=== PATIENT | female | born 1935 | race Caucasian/White ===

== ENCOUNTER 2018-07-06 16:47 | Emergency (ER) | payer MEDICARE ==
[~2018-07-06] VITALS: Ht 157.5 cm; Wt 69.1 kg
[~2018-07-06 16:47] MED LIST: METHOTREXA2.5 MG/TAB PO; NAPROSYN PO; PREMARIN0.3 MG PO; TYLENOL 500MG500 MG PO; ZOFRAN4 MG PO
[2018-07-06 16:59] VITALS: TEMP 98.4
[2018-07-06 18:54] LABS: BASO % 0.4 % (0.0-2.0); EOS # 0.1 (0.0-0.7); EOS % 1.1 % (0-4.0); GRAN # 3.1 (1.4-6.5); GRAN % 69.9 % (42.2-75.2); HEMATOCRIT 39.8 % (37.0-47.0); HEMOGLOBIN 13.1 g/dl (12.5-16.0); LYMPH # 0.8 (1.2-3.4); LYMPH % 17.9 % (20.0-51.0); MEAN CELL VOLUME 102 fl (80.0-100.0); MEAN CORPUSCULAR HEMOGLOBIN 34 pg (27.0-31.0); MEAN CORPUSCULAR HGB CONC 33 g/dl (33.0-37.0); MEAN PLATELET VOLUME 9.7 fl (7.4-10.4); MONO # 0.5 (0.1-0.6); MONO % 10.5 % (1.7-9.3); PLATELET COUNT 203 K/mm3 (130-400); RED BLOOD COUNT 3.89 M/mm3 (4.10-5.30); REDCELL DISTRIBUTION WIDTH-CV 13.7 % (11.5-14.5)
[2018-07-06 19:04] LABS: ALBUMIN 4.5 gm/dL (3.5-5.0); BILIRUBIN,TOTAL 0.7 mg/dL (0.0-1.0); CALCIUM 9.5 mg/dL (8.4-10.2); CREATININE, serum 0.65 mg/dL (0.52-1.25); POTASSIUM 4.3 mmol/L (3.4-5.0); TOTAL PROTEIN 7.7 gm/dL (6.4-8.2)
[2018-07-06] MEDS ORDERED: LEVAQUIN 750MG750 M1 PO (19:52)
[2018-07-06 20:28] VITALS: BP 195/93; PULSE 70
== END 2018-07-06 20:28 | disposition home or self-care (01) ==
LOC: COL.ER 16:47
PROVIDERS: Physician Assistant
DX: S00.83XA Contusion of other part of head, initial encounter (principal); J18.1 Lobar pneumonia, unspecified organism; Z90.710 Acquired absence of both cervix and uterus; W18.39XA Other fall on same level, initial encounter; W22.8XXA Striking against or struck by other objects, initial encounter; Y92.009 Unspecified place in unspecified non-institutional (private) residence as the place of occurrence of the external cause

== ENCOUNTER 2020-09-11 12:45 | Emergency (ER) | payer MEDICARE ==
[~2020-09-11] VITALS: Ht 157.5 cm; Wt 52.7 kg
[~2020-09-11 12:45] MED LIST changes: +LEVAQUIN 750MG750 M1 PO
[2020-09-11 12:47] VITALS: TEMP 97.9
[2020-09-11] MEDS ORDERED: ELIQUIS 5MG PO (13:09)
[2020-09-11] MEDS ORDERED: LOTRIMIN1% TP (13:10)
[2020-09-11] MEDS ORDERED: LOMOTIL 0.025 M1 TAB PO (13:10)
[2020-09-11] MEDS ORDERED: B-121000 MCG PO (13:10)
[2020-09-11] MEDS ORDERED: FOLIC ACID 11 MG/TA1 PO (13:11)
[2020-09-11] MEDS ORDERED: ALDACTONE 25MG25 M1 PO (13:11)
[2020-09-11 13:32] LABS: BASO % 0.9 % (0.0-2.0); EOS # 0.1 (0.0-0.7); EOS % 2.1 % (0-4.0); GRAN # 3.3 (1.4-6.5); HEMOGLOBIN 10.9 g/dl (12.5-16.0); LYMPH # 0.6 (1.2-3.4); LYMPH % 13.1 % (20.0-51.0); MEAN CELL VOLUME 98 fl (80.0-100.0); MEAN CORPUSCULAR HEMOGLOBIN 31 pg (27.0-31.0); MEAN CORPUSCULAR HGB CONC 32 g/dl (33.0-37.0); MEAN PLATELET VOLUME 9.9 fl (7.4-10.4); MONO # 0.3 (0.1-0.6); PLATELET COUNT 185 K/mm3 (130-400); RED BLOOD COUNT 3.49 M/mm3 (4.10-5.30); REDCELL DISTRIBUTION WIDTH-CV 14.9 % (11.5-14.5)
[2020-09-11 13:44] LABS: ALBUMIN 3.3 gm/dL (3.5-5.0); BILIRUBIN,TOTAL 2.3 mg/dL (0.0-1.0); CALCIUM 8.6 mg/dL (8.4-10.2); CREATININE, serum 0.65 (0.52-1.25); POTASSIUM 3.2 mmol/L (3.4-5.0); TOTAL PROTEIN 6.8 gm/dL (6.4-8.2)
[2020-09-11 13:48] LABS: HEMATOCRIT 34.1 % (37.0-47.0)
[2020-09-11 14:06] LABS: INR 1.7 (0.8-3.0); PROTHROMBIN TIME 18.9 SECONDS (9.7-12.8)
[2020-09-11 15:14] LABS: HEMOGLOBIN 11.2 g/dl (12.5-16.0)
[2020-09-11 15:17] LABS: HEMATOCRIT 35.2 % (37.0-47.0)
[2020-09-11 15:47] VITALS: BP 179/100; PULSE 122
== END 2020-09-11 16:06 | disposition short-term general hospital (02) ==
LOC: COL.ER 12:45
PROVIDERS: Nurse Practitioner
DX: S06.5X0A Traumatic subdural hemorrhage without loss of consciousness, initial encounter (principal); S01.01XA Laceration without foreign body of scalp, initial encounter; I10 Essential (primary) hypertension; I48.91 Unspecified atrial fibrillation; Z79.01 Long term (current) use of anticoagulants; W01.198A Fall on same level from slipping, tripping and stumbling with subsequent striking against other object, initial encounter; Y92.481 Parking lot as the place of occurrence of the external cause
CPT/HCPCS: J7050

== ENCOUNTER 2020-11-13 13:46 | Inpatient (IN) | payer MEDICARE ==
[~2020-11-13] VITALS: Ht 157.5 cm; Wt 75.0 kg
[~2020-11-13 13:46] MED LIST changes: +ALDACTONE 25MG25 M1 PO; +B-121000 MCG PO; +ELIQUIS 5MG PO; +FOLIC ACID 11 MG/TA1 PO; +LOMOTIL 0.025 M1 TAB PO; +LOTRIMIN1% TP
[2020-11-14 09:55] LABS: BASO % 0.5 % (0.0-2.0); EOS # 0.1 (0.0-0.7); EOS % 1.4 % (0-4.0); GRAN # 3.5 (1.4-6.5); GRAN % 78.9 % (42.2-75.2); HEMATOCRIT 39.8 % (37.0-47.0); HEMOGLOBIN 12.2 g/dl (12.5-16.0); LYMPH # 0.5 (1.2-3.4); MEAN CELL VOLUME 98 fl (80.0-100.0); MEAN CORPUSCULAR HEMOGLOBIN 30 pg (27.0-31.0); MEAN CORPUSCULAR HGB CONC 31 g/dl (33.0-37.0); MEAN PLATELET VOLUME 9.5 fl (7.4-10.4); MONO # 0.4 (0.1-0.6); PLATELET COUNT 264 K/mm3 (130-400); RED BLOOD COUNT 4.07 M/mm3 (4.10-5.30); REDCELL DISTRIBUTION WIDTH-CV 14.8 % (11.5-14.5)
[2020-11-14 10:02] LABS: INR 2.2 (0.8-3.0)
[2020-11-14 10:04] LABS: ALBUMIN 3.6 gm/dL (3.5-5.0); BILIRUBIN,TOTAL 1.7 mg/dL (0.0-1.0); CREATININE, serum 0.76 (0.52-1.25); MAGNESIUM 1.6 mg/dL (1.6-2.3); TOTAL PROTEIN 7.2 gm/dL (6.4-8.2)
[2020-11-14 10:09] LABS: POTASSIUM 2.8 mmol/L (3.4-5.0)
[2020-11-14 10:37] VITALS: BP 165/97; PULSE 87; TEMP 98.2
[2020-11-14 12:14] VITALS: BP 109/91; PULSE 112; TEMP 97.9
[2020-11-14] MEDS ORDERED: TENORMIN 5050 MG/TAB PO ×2 (13:07→13:50)
[2020-11-14] MEDS ORDERED: BUMEX 1MG TA1 MG/TA1 PO (13:51)
[2020-11-14] MEDS ORDERED: METHOTREXA2.5 MG/TAB PO (13:54)
[2020-11-14] MEDS ORDERED: PREDNISONE1 MG PO (13:57)
[2020-11-14] MEDS ORDERED: NATURE'S BLEND100 M2 PO (14:03)
[2020-11-14 17:10] VITALS: BP 149/80; PULSE 87; TEMP 97.6
--- NOTE | 2020-11-14 20:45 | NUR ---
Initial shift assessment done-- sitting up in chair,, has her home clothes on, alert/oriented, Tele on-afib/rate 70-80,, INT to left AC,, nurse aide here and helped pt to bathroom, put on fall risk gown/arm band /slippers- pt brushed teeth- back to bed- bed alarm on- understands cannot get up without assistance. Has bruises to left side of face/abrasion from fall at home 1 week ago. Pt denies any chest pain/SOB or palpitations- here for Sotalol initiation.
[2020-11-14 21:06] VITALS: BP 163/96; PULSE 87; TEMP 97.4
[2020-11-15 00:27] VITALS: BP 141/80; PULSE 89; TEMP 97.4
[2020-11-15 04:16] VITALS: BP 136/90; PULSE 85; TEMP 97.6
--- NOTE | 2020-11-15 05:31 | NUR ---
Up to bathroom with assisst every 2 hours throughout the night- VSS, Tele on- afib rate 80,s.
[2020-11-15 06:49] LABS: BASO % 0.4 % (0.0-2.0); EOS # 0.1 (0.0-0.7); GRAN # 3.5 (1.4-6.5); GRAN % 75.3 % (42.2-75.2); HEMATOCRIT 37.2 % (37.0-47.0); HEMOGLOBIN 11.4 g/dl (12.5-16.0); LYMPH # 0.6 (1.2-3.4); MEAN CELL VOLUME 97 fl (80.0-100.0); MEAN CORPUSCULAR HEMOGLOBIN 30 pg (27.0-31.0); MEAN CORPUSCULAR HGB CONC 31 g/dl (33.0-37.0); MEAN PLATELET VOLUME 9.3 fl (7.4-10.4); MONO # 0.4 (0.1-0.6); MONO % 8.9 % (1.7-9.3); PLATELET COUNT 247 K/mm3 (130-400); RED BLOOD COUNT 3.85 M/mm3 (4.10-5.30); REDCELL DISTRIBUTION WIDTH-CV 14.6 % (11.5-14.5)
[2020-11-15 07:05] LABS: CALCIUM 8.7 mg/dL (8.4-10.2); CREATININE, serum 0.73 (0.52-1.25); POTASSIUM 3.7 mmol/L (3.4-5.0)
[2020-11-15 08:35] VITALS: BP 142/76; PULSE 91; TEMP 97.5
--- NOTE | 2020-11-15 11:02 | NUR ---
Assessment completed, alert/oriented, vital signs stable, heart irregular/A.fib on tele with rate controlled, QTC withing normal range and Sotalol given, lungs CTA/ diminished, edema to BLE, IV duretics ordered and patient refused/ I have notified cardiolgoy of this and they plan to come discuss plan of care with her, patient denies other needs at [facility], will continue to monitor
[2020-11-15 11:36] VITALS: BP 138/95; PULSE 82; TEMP 98.2
--- NOTE | 2020-11-15 13:46 | NUR ---
SOPHIE met with the patient to discuss discharge plan. The patient lives in [place] with her daughter, Rosette Langley (ph#[phone]). She reports independence with ADLs and has a cane and walker. The patient's PCP is Dr. Donaldo Leyva and she receives her medications from [facility]. She reports some difficulties affording her meds. She states that she is on Eliquis and it is very expensive. SOPHIE informed her of [facility] and how sometimes the cardiologists are able to provide free samples. The patient verbalized understanding. The patient does not have DPOA-HC in EMR, but she states that she does have one completed and that it designates her daughter, Rosette. The patient plans to return home with her daughter upon discharge. No additional needs at this time. *Discharge plan: home with daughter*
[2020-11-15 15:25] VITALS: BP 151/93; PULSE 79; TEMP 97.9
[2020-11-15 19:53] VITALS: BP 103/76; PULSE 91; TEMP 98
[2020-11-16] VITALS (9 sets, daily range): BP systolic 106–156; BP diastolic 50–91; PULSE 71–97; TEMP 97.6–97.9
[2020-11-16 06:39] LABS: BASO % 0.4 % (0.0-2.0); EOS # 0.1 (0.0-0.7); EOS % 2.2 % (0-4.0); HEMATOCRIT 37.4 % (37.0-47.0); HEMOGLOBIN 11.4 g/dl (12.5-16.0); LYMPH # 0.5 (1.2-3.4); LYMPH % 10.5 % (20.0-51.0); MEAN CELL VOLUME 98 fl (80.0-100.0); MEAN CORPUSCULAR HEMOGLOBIN 30 pg (27.0-31.0); MEAN CORPUSCULAR HGB CONC 31 g/dl (33.0-37.0); MEAN PLATELET VOLUME 9.7 fl (7.4-10.4); MONO # 0.4 (0.1-0.6); MONO % 7.7 % (1.7-9.3); PLATELET COUNT 259 K/mm3 (130-400); RED BLOOD COUNT 3.83 M/mm3 (4.10-5.30); REDCELL DISTRIBUTION WIDTH-CV 14.8 % (11.5-14.5)
[2020-11-16 06:44] LABS: CALCIUM 8.5 mg/dL (8.4-10.2); CREATININE, serum 0.83 (0.52-1.25); MAGNESIUM 1.8 mg/dL (1.6-2.3); POTASSIUM 3.1 mmol/L (3.4-5.0)
--- NOTE | 2020-11-16 08:30 | NUR ---
Scheduled medications given. Shift assessment preformed. Patient continues to be in Afib. JUANI and Cardioversion scheduled for later this morning. VSS. Patient denies any pain. Blount catheter in place, securement device attached, no kinks in tubing, dependant drainage. Urine is an sergey color with red tinge. Patient denies any further needs at this time. Will continue to monitor. Call light in reach. Fall precautions in place.
--- NOTE | 2020-11-16 10:00 | NUR ---
Patient taken down for JUANI/Cardioversion.
--- NOTE | 2020-11-16 11:30 | NUR ---
Patient back in room from JUANI/Cardioversion. Patient tolerated procedure well. Report recieved from NATALIE Carrera. Patient denies any pain, discomfort, or further needs at this time. VSS. Post-op vitals in place. Will continue to monitor. Call light in reach. Fall precautions in place.
[2020-11-16] MEDS ORDERED: BETAPACE 120MG120 MG PO (13:15)
[2020-11-16] MEDS ORDERED: KLOR-CON20 MEQ PO (13:16)
--- NOTE | 2020-11-16 19:04 | NUR ---
Patient deemed fit for discharge. Discharge education/instructions given. Patient denies any questions or concerns. IV DC'd, catheter intact, no signs of phlebitis. Catheter DC'd, ballon and tip intact. Patient was able to void successfully after it was DC'd. VSS. Patient escorted from building by [facility] Staff via wheelchair.
== END 2020-11-16 17:00 | disposition home or self-care (01) | DRG 308 ==
LOC: MEDICAL 11-14 08:38
PROVIDERS: ADMIT Internal Medicine Cardiovascular Disease
PROC: 5A2204Z Restoration of Cardiac Rhythm, Single (ICD-10-PCS; principal; 2020-11-14)
DX: I48.19 Other persistent atrial fibrillation (principal); I50.33 Acute on chronic diastolic (congestive) heart failure; E87.6 Hypokalemia; E78.5 Hyperlipidemia, unspecified; E78.00 Pure hypercholesterolemia, unspecified; I11.0 Hypertensive heart disease with heart failure; Z88.6 Allergy status to analgesic agent; Z88.1 Allergy status to other antibiotic agents; Z88.2 Allergy status to sulfonamides; Z88.8 Allergy status to other drugs, medicaments and biological substances; Z79.01 Long term (current) use of anticoagulants; Z87.891 Personal history of nicotine dependence
CPT/HCPCS: A4314; J2704; J3475; J3480

== ENCOUNTER 2020-11-28 16:31 | Inpatient (IN) | payer MEDICARE ==
[~2020-11-28] VITALS: Ht 160 cm; Wt 52.7 kg
[~2020-11-28 16:31] MED LIST changes: +BETAPACE 120MG120 MG PO; +BUMEX 1MG TA1 MG/TA1 PO; +KLOR-CON20 MEQ PO; +NATURE'S BLEND100 M2 PO; +PREDNISONE1 MG PO; +TENORMIN 5050 MG/TAB PO
[2020-11-28 16:45] LABS: BASO % 0.3 % (0.0-2.0); EOS % 0.1 % (0-4.0); GRAN # 5.7 (1.4-6.5); GRAN % 80.7 % (42.2-75.2); HEMATOCRIT 43.2 % (37.0-47.0); HEMOGLOBIN 13.4 g/dl (12.5-16.0); LYMPH # 0.5 (1.2-3.4); LYMPH % 7.2 % (20.0-51.0); MEAN CELL VOLUME 96 fl (80.0-100.0); MEAN CORPUSCULAR HEMOGLOBIN 30 pg (27.0-31.0); MEAN CORPUSCULAR HGB CONC 31 g/dl (33.0-37.0); MEAN PLATELET VOLUME 10.1 fl (7.4-10.4); MONO # 0.8 (0.1-0.6); MONO % 11.3 % (1.7-9.3); PLATELET COUNT 221 K/mm3 (130-400); RED BLOOD COUNT 4.51 M/mm3 (4.10-5.30); REDCELL DISTRIBUTION WIDTH-CV 14.1 % (11.5-14.5)
[2020-11-28 16:55] LABS: ALANINE AMINOTRANSFERASE 13 U/L (4-34); ALBUMIN 3.7 gm/dL (3.5-5.0); ALKALINE PHOSPHATASE 171 U/L (50-136); ANION GAP 11 mmol/L (7-16); AST,SGOT 27 U/L (15-37); BILIRUBIN,TOTAL 2.9 mg/dL (0.0-1.0); BLOOD UREA NITROGEN 17 mg/dL (7-17); CARBON DIOXIDE 25 mmol/L (22-30); CHLORIDE 100 mmol/L (98-107); CREATININE, serum 0.58 (0.52-1.25); GLUCOSE 111 mg/dL (74-106); SODIUM 136 mmol/L (137-145); TOTAL PROTEIN 7.9 gm/dL (6.4-8.2)
[2020-11-28 17:07] LABS: TROPONIN-I < 0.012 ng/mL (0.000-0.035)
[2020-11-28 21:26] VITALS: BP 190/114; PULSE 89; TEMP 97.9
--- NOTE | 2020-11-28 21:44 | NUR ---
Patient arrived to [facility] at 2130. Assessment complete and charted. Patient unable to state last time home medications were taken. Orientated to surgical floor. Denies needs. Call light in reach.
[2020-11-29 00:05] VITALS: BP 163/88; PULSE 79; TEMP 97.4
[2020-11-29 03:45] VITALS: BP 162/90; PULSE 64; TEMP 97.1
--- NOTE | 2020-11-29 06:42 | NUR ---
Patient had uneventful night. Resting in bed this AM. Call light in reach.
--- NOTE | 2020-11-29 06:53 | NUR ---
Report given to NATALIE Mahmood
[2020-11-29 08:00] VITALS: BP 146/85; PULSE 87; TEMP 98
[2020-11-29 08:06] LABS: BASO % 0.3 % (0.0-2.0); EOS % 0.7 % (0-4.0); GRAN # 4.7 (1.4-6.5); GRAN % 78.5 % (42.2-75.2); HEMATOCRIT 43.2 % (37.0-47.0); HEMOGLOBIN 13.5 g/dl (12.5-16.0); LYMPH # 0.5 (1.2-3.4); LYMPH % 8.6 % (20.0-51.0); MEAN CELL VOLUME 95 fl (80.0-100.0); MEAN CORPUSCULAR HEMOGLOBIN 30 pg (27.0-31.0); MEAN CORPUSCULAR HGB CONC 31 g/dl (33.0-37.0); MEAN PLATELET VOLUME 10.8 fl (7.4-10.4); MONO # 0.7 (0.1-0.6); MONO % 11.4 % (1.7-9.3); PLATELET COUNT 194 K/mm3 (130-400); RED BLOOD COUNT 4.56 M/mm3 (4.10-5.30); REDCELL DISTRIBUTION WIDTH-CV 13.8 % (11.5-14.5)
[2020-11-29 08:20] LABS: ANION GAP 12 mmol/L (7-16); BLOOD UREA NITROGEN 16 mg/dL (7-17); CARBON DIOXIDE 28 mmol/L (22-30); CHLORIDE 96 mmol/L (98-107); CREATININE, serum 0.57 (0.52-1.25); GLUCOSE 90 mg/dL (74-106); POTASSIUM 3.1 mmol/L (3.4-5.0); SODIUM 136 mmol/L (137-145)
[2020-11-29 08:27] LABS: TROPONIN-I < 0.012 ng/mL (0.000-0.035)
--- NOTE | 2020-11-29 11:14 | NUR ---
Patient alert and oriented, answers questions appropriately. See assessment. No c/o chest pain or short of air. Lungs decreased in bases, clear in upper lobes. 2+ edema to BLE, pulses palpable. 1+ edema to groin. Urinating adequate amounts. No c/o at this time.
[2020-11-29 13:32] VITALS: BP 114/71; PULSE 92; TEMP 97.6
[2020-11-29 16:00] VITALS: BP 145/79; PULSE 96; TEMP 97.9
--- NOTE | 2020-11-29 16:06 | NUR ---
workers compensation claims supervisor met with patient to discuss discharge planning. This is a readmission for patient. Patient lives with her daughter, Rosette. Patient's primary care provider is Dr Leyva. Patient reports that she stopped taking her diaretic. Worker contacted social [facility] worker at Dr Leyva's office and advised that this is a readmission. Delores states that their transitional care worker tried to call patient and couldn't reach her. Delores confirmed that patient did not see Dr Leyva after prior discharge. Patient did see GI physician on 11/28/2020. Lives with daughter, Rosette and plans to return.
[2020-11-29 16:34] LABS: CALCIUM 8.8 mg/dL (8.4-10.2); CREATININE, serum 0.71 (0.52-1.25); POTASSIUM 3.3 mmol/L (3.4-5.0)
[2020-11-29 19:17] VITALS: BP 125/62; PULSE 94; TEMP 98.1
--- NOTE | 2020-11-29 20:30 | NUR ---
PT INDEPENDENT IN ROOM. HAS BUMEX GTT TO LEFT AC INFUSING AT 2.5CC/HR. HAS CRACKLES TO LUNG BASES. HAS EDEMA TO BILATERAL LOWER LEGS, OBVIOUS WRINKLING FROM DECREASE IN SWELLING. PT VOIDING PER BSC, YELLOW URINE. HS MEDS GIVEN. ON K+PROTOCOL, TO RECEIVE 3 ORAL DOSES TONIGHT FOR 3.3 LEVEL.
[2020-11-29 21:24] LABS: CALCIUM 9.3 mg/dL (8.4-10.2); CREATININE, serum 0.76 (0.52-1.25); POTASSIUM 3.8 mmol/L (3.4-5.0)
--- NOTE | 2020-11-29 21:28 | NUR ---
SPOKE WITH SEBAS MUNOZ REGARDING PTS LAB RESULTS, REQUESTS CARDIOLOGY BE CONTACTED REGARDING BUMEX GTT.
--- NOTE | 2020-11-29 21:40 | NUR ---
CONTACTED DR VILLAFUERTE REGARDING BUMEX GTT, ORDER TO HOLD TONIGHT. RELAYED TO SEBAS PEREZ.
--- NOTE | 2020-11-29 23:30 | NUR ---
PT TAKES 2ND DOSE OF ORAL POTASSIUM. MAGNESIUM IV HUNG AT THIS TIME.
[2020-11-30 00:01] VITALS: BP 127/59; PULSE 90; TEMP 97.5
[2020-11-30 03:20] VITALS: BP 135/80; PULSE 86; TEMP 97.7
--- NOTE | 2020-11-30 06:00 | NUR ---
TAKES SCHEDULED AM MEDS WITHOUT PROBLEM.
[2020-11-30 07:21] LABS: BASO % 0.2 % (0.0-2.0); EOS # 0.1 (0.0-0.7); EOS % 2.2 % (0-4.0); GRAN # 3.3 (1.4-6.5); GRAN % 71.6 % (42.2-75.2); HEMATOCRIT 40.3 % (37.0-47.0); HEMOGLOBIN 12.7 g/dl (12.5-16.0); LYMPH # 0.5 (1.2-3.4); MEAN CELL VOLUME 92 fl (80.0-100.0); MEAN CORPUSCULAR HEMOGLOBIN 29 pg (27.0-31.0); MEAN CORPUSCULAR HGB CONC 32 g/dl (33.0-37.0); MEAN PLATELET VOLUME 10.3 fl (7.4-10.4); MONO # 0.7 (0.1-0.6); MONO % 14.6 % (1.7-9.3); PLATELET COUNT 226 K/mm3 (130-400); RED BLOOD COUNT 4.36 M/mm3 (4.10-5.30); REDCELL DISTRIBUTION WIDTH-CV 13.7 % (11.5-14.5)
[2020-11-30 07:33] LABS: CALCIUM 8.8 mg/dL (8.4-10.2); CREATININE, serum 0.73 (0.52-1.25); MAGNESIUM 1.8 mg/dL (1.6-2.3); POTASSIUM 3.5 mmol/L (3.4-5.0)
[2020-11-30 08:43] VITALS: BP 138/55; PULSE 74; TEMP 98.4
--- NOTE | 2020-11-30 10:49 | NUR ---
Patient sitting up in recliner. Alert and oriented x 3. Assessment complete. patient states she is feeling much better today and would like to go home. Tele in place. INT to LAC. Denies further needs at this time.
[2020-11-30] MEDS ORDERED: ASPIRIN 81M81 MG/TA2 PO (11:48)
--- NOTE | 2020-11-30 14:20 | NUR ---
Discharge education provided to patient. Educated on when to call provider and follow up appointments. Educated on medication changes. All questions answered. Reviewed all education with daughter. Patient out by wheelchair with surgical staff and daughter. INT to LAC discontinued, catheter tip intact.
== END 2020-11-30 14:20 | disposition home or self-care (01) | DRG 292 ==
LOC: COL.ER 16:31 → SURG 18:23
PROVIDERS: Emergency Medicine; Physician Assistant; Student in an Organized Health Care Education/Training Program; ADMIT Internal Medicine
DX: I11.0 Hypertensive heart disease with heart failure (principal); E87.3 Alkalosis; I50.33 Acute on chronic diastolic (congestive) heart failure; E87.6 Hypokalemia; R07.89 Other chest pain; M06.9 Rheumatoid arthritis, unspecified; I48.91 Unspecified atrial fibrillation; K74.60 Unspecified cirrhosis of liver; I34.0 Nonrheumatic mitral (valve) insufficiency; Z20.822 Contact with and (suspected) exposure to COVID-19
CPT/HCPCS: 99223-AI; 99232-AI; 99239; J1940; J3475

== ENCOUNTER → 2021-09-20 | Outpatient (CLI) | payer MEDICARE ==
[~2021-09-20] MED LIST changes: +ASPIRIN 81M81 MG/TA2 PO
== END ==
LOC: COL.RAD 11:41
DX: K74.69 Other cirrhosis of liver (principal); N26.1 Atrophy of kidney (terminal)

== ENCOUNTER 2024-01-27 16:07 | Emergency (ER) | payer MEDICARE ==
[~2024-01-27] VITALS: Ht 152.4 cm; Wt 35.5 kg
[~2024-01-27 16:07] MED LIST changes: +VALTREX1 GM PO
[2024-01-27 16:38] LABS: BASO % 0.2 % (0.0-2.0); EOS % 0.4 % (0.0-4.0); GRAN # 6.4 K/mm3 (1.4-6.5); GRAN % 77.6 % (42.2-75.2); HEMOGLOBIN 10.8 g/dl (12.5-16.0); LYMPH # 0.8 K/mm3 (1.2-3.4); LYMPH % 9.5 % (20.0-51.0); MEAN CELL VOLUME 85 fl (80.0-100.0); MEAN CORPUSCULAR HEMOGLOBIN 26 pg (27-31); MEAN CORPUSCULAR HGB CONC 31 g/dl (33.0-37.0); MEAN PLATELET VOLUME 9.1 fl (7.4-10.4); MONO % 12.1 % (1.7-9.3); PLATELET COUNT 333 K/mm3 (130-400); RED BLOOD COUNT 4.13 M/mm3 (4.10-5.30); REDCELL DISTRIBUTION WIDTH-CV 15.1 % (11.5-14.5)
[2024-01-27 16:44] LABS: HEMATOCRIT 35.2 % (37.0-47.0)
[2024-01-27 16:53] LABS: ALBUMIN 2.9 g/dL (3.4-4.8); BILIRUBIN,TOTAL 0.5 mg/dL (0.2-1.2); C-REACTIVE PROTEIN 9.52 mg/dL (0.00-0.50); CALCIUM 9.8 mg/dL (8.4-10.2); CREATININE, serum 1.28 mg/dL (0.57-1.11); POTASSIUM 5.3 mEq/L (3.5-4.5); TOTAL PROTEIN 7.8 g/dl (6.2-8.1)
[2024-01-27 17:08] LABS: TROPONIN-I 0.045 ng/mL (0.00-0.033)
[2024-01-27 17:17] LABS: INR 1.8 (0.8-3.0); PROTHROMBIN TIME 18.8 SECONDS (9.7-12.8)
[2024-01-27] MEDS ORDERED: Iohexol 300 - 100 ML VIAL IV ONE (17:52)
[2024-01-27] MEDS ORDERED: NS 100 ML IV ONE (18:01)
[2024-01-27] MEDS ORDERED: traMADol 50 MG TAB PO ONE (22:00)
[2024-01-28] MEDS ORDERED: ULTRAM 50MG TAB50 MG PO (00:31)
[2024-01-28] MEDS ORDERED: NEURONTIN100 MG/CAP PO (00:32)
[2024-01-28 00:56] VITALS: TEMP 97.9
[2024-01-28 01:15] VITALS: BP 110/61; PULSE 92
== END 2024-01-28 01:30 | disposition short-term general hospital (02) ==
LOC: COL.ER 16:07
PROVIDERS: Emergency Medicine
DX: I71.03 Dissection of thoracoabdominal aorta (principal); D64.9 Anemia, unspecified; I48.91 Unspecified atrial fibrillation; R79.89 Other specified abnormal findings of blood chemistry; R79.82 Elevated C-reactive protein (CRP); E87.5 Hyperkalemia; K92.2 Gastrointestinal hemorrhage, unspecified; K62.89 Other specified diseases of anus and rectum
CPT/HCPCS: Q9967